=== PATIENT | female | born 1995 | race Caucasian/White ===

== ENCOUNTER 2022-09-01 21:50 | Emergency (ER) | payer OTHER ==
[~2022-09-01] VITALS: Ht 167.6 cm; Wt 74.8 kg
[2022-09-01 21:50] VITALS: BP_SYST 113
[2022-09-01] MEDS ORDERED: IBUPROFEN 600 MG TABLET PO ONE (22:30)
[2022-09-01] MEDS ORDERED: IBUP-1969 PO (22:52)
[2022-09-01 23:05] VITALS: BP_SYST 122
== END 2022-09-01 23:01 ==
LOC: SED 21:50
DX: S00.33XA Contusion of nose, initial encounter (principal); S20.212A Contusion of left front wall of thorax, initial encounter; S80.211A Abrasion, right knee, initial encounter; Z79.899 Other long term (current) drug therapy; Y04.0XXA Assault by unarmed brawl or fight, initial encounter; Y93.89 Activity, other specified; Y92.89 Other specified places as the place of occurrence of the external cause; Y99.8 Other external cause status
CPT/HCPCS: 71045; 73564; 81025; 99283; 99284